=== PATIENT | male | born 1985 ===

== ENCOUNTER 2021-06-19 17:45 | Emergency (ER) | payer OTHER ==
[~2021-06-19] VITALS: Ht 188 cm; Wt 181.4 kg
[2021-06-19 17:52] VITALS: BP 143/89
[2021-06-19] MEDS ORDERED: IOHEXOL 300 MG/ML 100ML BOTTLE IJ ONE (18:09)
== END 2021-06-19 21:12 | disposition left against medical advice (07) ==
LOC: ER 17:45
DX: M54.9 Dorsalgia, unspecified (principal); F12.10 Cannabis abuse, uncomplicated; F17.210 Nicotine dependence, cigarettes, uncomplicated; Z53.29 Procedure and treatment not carried out because of patient's decision for other reasons; V43.52XA Car driver injured in collision with other type car in traffic accident, initial encounter; Y93.89 Activity, other specified; Y92.410 Unspecified street and highway as the place of occurrence of the external cause; Y99.8 Other external cause status